=== PATIENT | female | born 1985 | race African-American/Black ===

== ENCOUNTER 2016-05-21 14:20 | Emergency (ER) | payer OTHER, SELFPAY ==
[~2016-05-21 14:20] MED LIST: Sodium Chloride 0.9% 1,000 ML BAG ONE; Sodium Chloride 0.9% 100 ML BAG ONE
[2016-05-21] MEDS ORDERED: HYDROcodone/Acetaminophen 10/325 mg Tablet ONE (15:54)
[2016-05-21] MEDS ORDERED: cefTRIAXone\\ROCEPHIN 1 GM VIAL ONE (15:55)
[2016-05-21] MEDS ORDERED: Ondansetron ODT 4 MG TAB ONE (15:55)
[2016-05-21] MEDS ORDERED: AMOXicillin 250 MG CAP ONE (15:55)
== END 2016-05-21 17:12 | disposition home or self-care (01) ==
LOC: MADERS 14:20
DX: J02.9 Acute pharyngitis, unspecified (principal); E86.0 Dehydration; K21.9 Gastro-esophageal reflux disease without esophagitis; J45.909 Unspecified asthma, uncomplicated
CPT/HCPCS: 96365; J0696; J7050; Q0162

== ENCOUNTER 2016-11-10 10:29 | Emergency (ER) | payer OTHER ==
[2016-11-10 11:44] LABS: Pregnancy Test - Urine (BHCG) POSITIVE (Negative); Pregu Control Background? CLEAR/WHITE (CLR/WHITE); Pregu Control Bar Appear? YES (CONTROL BAR); Specific Gravity 1.026 (1.002-1.036)
[2016-11-10 11:49] LABS: Bilirubin Negative (Negative); Blood, Urine Large (Negative); Clarity Clear (Clear); Glucose, Urine (Dipstick) Negative (Negative); Leukocyte Small (Negative); Nitrite Negative (Negative); Protein, Urine (Dipstick) Negative (Neg-Trace); Urobilinogen 0.2 mg/dL (0.2-1.0)
[2016-11-10 11:50] LABS: Specific Gravity, Urine 1.026 (1.002-1.036)
[2016-11-10 11:52] LABS: Bacteria/HPF 1+ HPF (None Seen)
[2016-11-10 11:55] LABS: #Eosinphils 0.1 thou/uL (0.0-0.7); #Lymphocytes 1.8 thou/uL (1.20-3.40); #Monocytes 0.3 thou/uL (0.11-0.59); #Neutrophils 3.3 thou/uL (1.40-6.50); %Basophils 0.9 % (0.0-1.0); %Eosinophils 1.9 % (0.0-10.0); %Lymphocytes 33.1 % (21.0-51.0); %Monocytes 5.3 % (0.0-10.0); %Neutrophils 58.9 % (42.0-75.0); Hemoglobin 12.6 g/dL (12.0-16.0); Mean Corpuscular HGB CONC 32.1 g/dL (32.0-36.0); Mean Corpuscular Hemoglobin 30.3 pg (27.0-31.0); Mean Corpuscular Volume 94.4 fl (81.0-99.0); Mean Platelet Volume 7.9 fL (7.4-10.4); Platelet Count 231 thou/uL (130-400); RBC Distribution Width 12.2 % (11.5-14.5); Red Blood Cell (RBC) Count 4.17 mill/uL (4.20-5.40); White Blood Cell (WBC) Count 5.6 thou/uL (4.8-10.8)
[2016-11-10 12:04] LABS: Prothrombin Time 13.7 SEC (12.0-14.7)
[2016-11-10 12:05] LABS: PTT 29.6 SEC (22.9-36.1)
[2016-11-10 12:15] LABS: ALT (SGPT) 33 U/L (8-55); AST (SGOT) 23 U/L (5-34); Albumin 4.1 g/dL (3.5-5.0); Alkaline Phosphatase 79 U/L (40-150); Anion Gap 13 mmol/L (10-20); BUN (Urea Nitrogen) 8 mg/dL (7.0-18.7); Bilirubin, Total Less than 0.3 mg/dL (0.2-1.2); Calc. Creatinine Clearance 0 mL/min (70-130); Calcium 9.3 mg/dL (7.8-10.44); Carbon Dioxide 23 mmol/L (22-29); Chloride 106 mmol/L (98-107); Estimated GFR-MDRD Greater than 90; Globulin 3.6 g/dL (2.4-3.5); Glucose 98 mg/dL (70-105); Potassium 3.8 mmol/L (3.5-5.1); Protein, Total 7.7 g/dL (6.0-8.3); Sodium 138 mmol/L (136-145)
--- NOTE | 2016-11-10 14:13 | ULT ---
PELVIC ULTRASOUND INCLUDING TRANSABDOMINAL AND TRANSVAGINAL AND VASCULAR DUPLEX WITH COLOR AND SPECT RAL DOPPLER IMAGING: Date: 11/10/16 HISTORY: 31-year-old female with pelvic pain. History of positive test, but passed a clot 8 days ag o and spotting since. The uterus measures 8.8 x 4.7 x 4.4 cm. There is a small, slightly oval fluid collection in the uter ine and fundus region with some material within this fluid. This could represent an abnormal nearly collapsed gestational sac and small pole. No evidence for viability. Right ovary is unremarkable measuring 1.4 x 1.6 x 2.7 cm. The left ovary is not visualized. No absce ss or abnormal fluid collection. IMPRESSION: Possible very small oval abnormal gestational sac within the uterus without evidence for definitive viability. Correlate with serum HCGs. Nonvisualized left ovary. No abnormal fluid collection. Follow-up serum HCG suggested. POS: [id number]
== END 2016-11-10 14:35 | disposition home or self-care (01) ==
LOC: MADERS 10:29
DX: O20.0 Threatened abortion (principal); J45.909 Unspecified asthma, uncomplicated; Z3A.01 Less than 8 weeks gestation of pregnancy
CPT/HCPCS: 36415; 76815; 80053; 81003; 81015; 81025; 84702; 85025; 85610; 85730

== ENCOUNTER 2016-11-12 11:05 | Outpatient (CLI) | payer OTHER | END 2016-11-12 11:06 | disposition home or self-care (01) | LOC: MADLABBHPM 11:05 | PROVIDERS: ATTEND Family Medicine | DX: O20.0 Threatened abortion (principal) | CPT/HCPCS: 36415; 84702 ==

== ENCOUNTER 2017-10-15 13:40 | Emergency (ER) | payer OTHER | END 2017-10-15 14:15 | disposition home or self-care (01) | LOC: MADERS 13:40 | DX: O47.03 False labor before 37 completed weeks of gestation, third trimester (principal); O99.513 Diseases of the respiratory system complicating pregnancy, third trimester; J45.909 Unspecified asthma, uncomplicated; O99.613 Diseases of the digestive system complicating pregnancy, third trimester; K21.9 Gastro-esophageal reflux disease without esophagitis; Z3A.36 36 weeks gestation of pregnancy | CPT/HCPCS: 99283 ==

== ENCOUNTER 2020-11-03 06:19 | Emergency (ER) | payer BC, OTHER ==
[2020-11-04 09:53] LABS: SARS-CoV-2 PCR by NAA Not Detected (NotDetected)
== END 2020-11-03 07:00 | disposition home or self-care (01) ==
LOC: MADERS 06:19
DX: R53.1 Weakness (principal); R05 Cough; R53.81 Other malaise; R10.9 Unspecified abdominal pain; R06.02 Shortness of breath; Z20.822 Contact with and (suspected) exposure to COVID-19; K21.9 Gastro-esophageal reflux disease without esophagitis; J45.909 Unspecified asthma, uncomplicated
CPT/HCPCS: 99284; U0003; U0005

== ENCOUNTER 2021-04-30 17:48 | Emergency (ER) | payer OTHER ==
[2021-04-30] MEDS ORDERED: Sodium Chloride 0.9% 1,000 ML ONE (18:27)
[2021-04-30] MEDS ORDERED: Acetaminophen 500 MG TAB ONE (18:47)
[2021-04-30 18:48] LABS: #Basophils 0.1 thou/uL (0.0-0.2); #Eosinphils 0.1 thou/uL (0.0-0.7); #Lymphocytes 1.1 thou/uL (1.20-3.40); #Monocytes 0.3 thou/uL (0.11-0.59); #Neutrophils 4.2 thou/uL (1.40-6.50); %Basophils 1.1 % (0.0-1.0); %Monocytes 5.9 % (0.0-10.0); %Neutrophils 72.9 % (42.0-75.0); Hemoglobin 11.4 g/dL (12.0-16.0); Mean Corpuscular HGB CONC 33.6 g/dL (32.0-36.0); Mean Corpuscular Hemoglobin 29.2 pg (27.0-31.0); Mean Corpuscular Volume 86.9 fL (78.0-98.0); Mean Platelet Volume 7.6 fL (7.4-10.4); Platelet Count 254 thou/uL (130-400); Red Blood Cell (RBC) Count 3.92 mill/uL (4.20-5.40); White Blood Cell (WBC) Count 5.8 thou/uL (4.8-10.8)
[2021-04-30 19:06] LABS: ALT (SGPT) 15 U/L (8-55); AST (SGOT) 18 U/L (5-34); Albumin 3.8 g/dL (3.5-5.0); Alkaline Phosphatase 81 U/L (40-110); Anion Gap 16 mmol/L (10-20); BUN (Urea Nitrogen) 6 mg/dL (7.0-18.7); Bilirubin, Total 0.4 mg/dL (0.2-1.2); Calc. Creatinine Clearance 0 mL/min (70-130); Carbon Dioxide 20 mmol/L (22-29); Chloride 106 mmol/L (98-107); Globulin 3.1 g/dL (2.4-3.5); Glucose 96 mg/dL (70-105); Potassium 3.7 mmol/L (3.5-5.1); Protein, Total 6.9 g/dL (6.0-8.3); Sodium 138 mmol/L (136-145)
[2021-04-30 19:38] LABS: Bilirubin Negative (Negative); Blood, Urine Small (Negative); Clarity Clear (Clear); Glucose, Urine (Dipstick) Negative (Negative); Ketone, Urine Negative (Negative); Leukocyte Negative (Negative); Nitrite Negative (Negative); Protein, Urine (Dipstick) Negative (Neg-Trace); Urobilinogen 0.2 mg/dL (Less than 2)
[2021-04-30 19:44] LABS: WBC/HPF None Seen HPF (0-3)
[2021-04-30 19:45] LABS: Amphetamine Not Detected (NotDetected); Barbiturates Screen Not Detected (NotDetected); Benzodiazepine Screen Not Detected (NotDetected); Cocaine Metabolite Screen Not Detected (NotDetected); Medtox Control Line Valid? VALID (VALID); Methadone Not Detected (NotDetected); Methamphetamine Not Detected (NotDetected); Opiate Screen Not Detected (NotDetected); Oxycodone Screen Not Detected (NotDetected); Phencyclidine (PCP) Not Detected (NotDetected); THC/Cannabinoid Screen Not Detected (NotDetected); Tricyclic Screen Not Detected (NotDetected)
== END 2021-04-30 20:18 | disposition home or self-care (01) ==
LOC: MADERS 17:48
DX: O99.891 Other specified diseases and conditions complicating pregnancy (principal); R07.9 Chest pain, unspecified; O99.283 Endocrine, nutritional and metabolic diseases complicating pregnancy, third trimester; E86.0 Dehydration; R00.0 Tachycardia, unspecified; O99.613 Diseases of the digestive system complicating pregnancy, third trimester; K21.9 Gastro-esophageal reflux disease without esophagitis; J45.909 Unspecified asthma, uncomplicated; Z79.899 Other long term (current) drug therapy; Z3A.30 30 weeks gestation of pregnancy
CPT/HCPCS: 80053; 80306; 81003; 81015; 84443; 84484; 85025; 93005; J7050

== ENCOUNTER 2021-07-10 10:45 | Emergency (ER) | payer BC, OTHER ==
[2021-07-10] MEDS ORDERED: Lorazepam 2 MG/ML VIAL ONE (11:00)
== END 2021-07-10 11:20 | disposition left against medical advice (07) ==
LOC: MADERS 10:45
DX: F43.0 Acute stress reaction (principal); K21.9 Gastro-esophageal reflux disease without esophagitis; J45.909 Unspecified asthma, uncomplicated; Z79.899 Other long term (current) drug therapy
CPT/HCPCS: 96372; 99283; J2060

== ENCOUNTER 2023-04-05 21:45 | Emergency (ER) | payer OTHER ==
[2023-04-05] MEDS ORDERED: methylPREDNISolone Sod Succ/PF 125 MG/2 ML VIAL ONE (22:38)
[2023-04-05] MEDS ORDERED: Ibuprofen 600 MG TAB ONE (22:38)
[2023-04-05] MEDS ORDERED: Ipratropium/Albuterol 3 ML NEB ONE (22:38)
[2023-04-05] MEDS ORDERED: Sodium Chloride 0.9% 1,000 ML ONE (22:38)
[2023-04-05] MEDS ORDERED: Benzonatate 100 MG CAP ONE (23:17)
[2023-04-05] MEDS ORDERED: Azithromycin 250 MG TAB ONE (23:54)
== END 2023-04-06 00:03 | disposition home or self-care (01) ==
LOC: MADERS 21:45
DX: J45.901 Unspecified asthma with (acute) exacerbation (principal); J20.9 Acute bronchitis, unspecified; Z79.899 Other long term (current) drug therapy
CPT/HCPCS: 87635; 87804; 94640; 96374; J2930; J7050; J7620

== ENCOUNTER 2023-05-19 08:27 | Emergency (ER) | payer OTHER ==
[2023-05-19 23:03] LABS: SARS-CoV-2 N1 Negative; SARS-CoV-2 N2 Negative; SARS-CoV-2 RNAse P1 Positive; SARS-CoV-2 RNAse P2 Positive
== END 2023-05-19 10:00 | disposition home or self-care (01) ==
LOC: MADERS 08:27
DX: J06.9 Acute upper respiratory infection, unspecified (principal); K59.00 Constipation, unspecified; I10 Essential (primary) hypertension
CPT/HCPCS: 87081; 87430; 87635; 87804; 99283

== ENCOUNTER 2023-12-16 16:20 | Emergency (ER) | payer OTHER ==
[2023-12-16 17:01] LABS: Bilirubin Negative (Negative); Blood, Urine Moderate (Negative); Glucose, Urine (Dipstick) Negative (Negative); Ketone, Urine 40 mg/dL (Negative); Leukocyte Negative (Negative); Nitrite Negative (Negative); Protein, Urine (Dipstick) 30 mg/dL (Neg-Trace)
[2023-12-16 17:08] LABS: Amphetamine Not Detected (NotDetected); Barbiturates Screen Not Detected (NotDetected); Benzodiazepine Screen Not Detected (NotDetected); Cocaine Metabolite Screen Not Detected (NotDetected); Methadone Not Detected (NotDetected); Methamphetamine Not Detected (NotDetected); Opiate Screen Not Detected (NotDetected); Oxycodone Screen Not Detected (NotDetected); Phencyclidine (PCP) Not Detected (NotDetected); THC/Cannabinoid Screen Not Detected (NotDetected); Tricyclic Screen Detected (NotDetected)
[2023-12-16 17:13] LABS: Clarity Clear (Clear); Specific Gravity, Urine 1.033 (1.002-1.036)
[2023-12-16 17:17] LABS: Bacteria/HPF Rare-Few HPF (None Seen); CAUTI Indications for Culture Pregnancy; Mucous/LPF 2+ LPF (<2+); WBC/HPF 0-3 HPF (0-3)
[2023-12-16 17:18] LABS: Urine Culture Reflex No No; Urine Culture Reflex Yes Yes
[2023-12-16 17:19] LABS: ALT (SGPT) 20 U/L (8-55); AST (SGOT) 23 U/L (5-34); Albumin 3.3 g/dL (3.5-5.0); Alkaline Phosphatase 58 U/L (40-110); Anion Gap 16 mmol/L (10-20); BUN (Urea Nitrogen) 7 mg/dL (7.0-18.7); Bilirubin, Total 0.5 mg/dL (0.2-1.2); Calc. Creatinine Clearance 0 mL/min (70-130); Calcium 9.1 mg/dL (7.8-10.44); Carbon Dioxide 19 mmol/L (22-29); Chloride 105 mmol/L (98-107); Estimated GFR 107; Globulin 3.8 g/dL (2.4-3.5); Glucose 120 mg/dL (70-105); Magnesium 1.6 mg/dL (1.6-2.6); Potassium 3.2 mmol/L (3.5-5.1); Protein, Total 7.1 g/dL (6.0-8.3); Sodium 137 mmol/L (136-145)
[2023-12-16 17:20] LABS: Troponin I Less than 0.010 ng/mL (< 0.028)
[2023-12-16 17:30] LABS: Band 1 % (5-11); Hematocrit 32.9 % (36.0-47.0); Hemoglobin 10.8 g/dL (12.0-16.0); MDiff Complete? YES; Mean Corpuscular HGB CONC 32.8 g/dL (32.0-36.0); Mean Corpuscular Hemoglobin 30.1 pg (27.0-31.0); Mean Platelet Volume 7.7 fL (7.4-10.4); Neutrophil 71 % (42-75); Platelet Count 208 10x3/uL (130-400); RBC Distribution Width 12.9 % (11.5-14.5); Red Blood Cell (RBC) Count 3.58 mill/uL (4.20-5.40); White Blood Cell (WBC) Count 9.1 10x3/uL (4.8-10.8)
[2023-12-16 17:31] LABS: Eosinophils 1 % (0-10); Lymphocytes 14 % (21-51); Manual Diff?? YES; Platelet Adequacy Comment Appears Adequate; Polychromasia SLIGHT = 2-3 cells (100X) (0-2/hpf); Reactive Lymphocytes 13 % (0-10)
== END 2023-12-16 19:27 | disposition home or self-care (01) ==
LOC: MADERS 16:20
DX: O99.891 Other specified diseases and conditions complicating pregnancy (principal); O99.332 Smoking (tobacco) complicating pregnancy, second trimester; O16.2 Unspecified maternal hypertension, second trimester; R00.0 Tachycardia, unspecified; Z3A.19 19 weeks gestation of pregnancy
CPT/HCPCS: 71045; 80053; 80306; 81001; 83735; 83880; 84484; 84702; 85025; 87086; 93005

== ENCOUNTER 2024-03-01 19:25 | Emergency (ER) | payer OTHER | END 2024-03-01 21:40 | disposition short-term general hospital (02) | LOC: MADERS 19:25 | DX: O99.891 Other specified diseases and conditions complicating pregnancy (principal); R10.30 Lower abdominal pain, unspecified; O11.3 Pre-existing hypertension with pre-eclampsia, third trimester; O10.913 Unspecified pre-existing hypertension complicating pregnancy, third trimester; O99.333 Smoking (tobacco) complicating pregnancy, third trimester; F17.290 Nicotine dependence, other tobacco product, uncomplicated; Z3A.30 30 weeks gestation of pregnancy ==

== ENCOUNTER 2024-04-15 19:53 | Emergency (ER) | payer SELFPAY ==
[2024-04-15] MEDS ORDERED: Sodium Chloride 0.9% 1,000 ML ONE (20:09)
[2024-04-15 20:19] LABS: #Basophils 0.1 thou/uL (0.0-0.2); #Eosinophils 0.1 thou/uL (0.0-0.7); #Lymphocytes 1.8 thou/uL (1.20-3.40); #Monocytes 0.4 thou/uL (0.11-0.59); #Neutrophils 2.9 thou/uL (1.40-6.50); %Eosinophils 2.3 % (0.0-10.0); %Lymphocytes 33.5 % (21.0-51.0); %Monocytes 8.2 % (0.0-10.0); %Neutrophils 55.1 % (42.0-75.0); Hematocrit 31.5 % (36.0-47.0); Hemoglobin 10.3 g/dL (12.0-16.0); Mean Corpuscular HGB CONC 32.7 g/dL (32.0-36.0); Mean Corpuscular Hemoglobin 28.9 pg (27.0-31.0); Mean Corpuscular Volume 88.2 fl (78.0-98.0); Mean Platelet Volume 10.5 fL (7.4-10.4); Platelet Count 197 10x3/uL (130-400); RBC Distribution Width 11.7 % (11.5-14.5); Red Blood Cell (RBC) Count 3.57 mill/uL (4.20-5.40); White Blood Cell (WBC) Count 5.3 10x3/uL (4.8-10.8)
[2024-04-15 20:32] LABS: ALT (SGPT) 8 U/L (Less than 34); AST (SGOT) 16 U/L (11-34); Albumin 3.1 g/dL (3.1-4.5); Alkaline Phosphatase 110 U/L (40-110); Anion Gap 14 mmol/L (10-20); BUN (Urea Nitrogen) 7 mg/dL (7.0-18.7); Bilirubin, Total 0.2 mg/dL (0.3-1.2); Calc. Creatinine Clearance 0 mL/min (70-130); Calcium 9.7 mg/dL (7.8-10.44); Carbon Dioxide 19 mmol/L (22-29); Chloride 108 mmol/L (98-107); Estimated GFR 116; Glucose 92 mg/dL (70-105); Protein, Total 7.1 g/dL (6.0-8.3); Sodium 137 mmol/L (136-145)
[2024-04-15] MEDS ORDERED: fentaNYL 50 mcg/mL 1 mL Vial ONE (21:27)
[2024-04-15] MEDS ORDERED: diphenhydrAMINE 50 MG/ML VIAL ONE (21:27)
== END 2024-04-15 22:03 | disposition short-term general hospital (02) ==
LOC: MADERS 19:53
DX: O62.4 Hypertonic, incoordinate, and prolonged uterine contractions (principal); O13.9 Gestational [pregnancy-induced] hypertension without significant proteinuria, unspecified trimester; O99.333 Smoking (tobacco) complicating pregnancy, third trimester; F17.290 Nicotine dependence, other tobacco product, uncomplicated; Z3A.37 37 weeks gestation of pregnancy
CPT/HCPCS: 80053; 85025; 96374; 96375; J1200; J3010; J7030

== ENCOUNTER 2024-10-02 14:47 | Emergency (ER) | payer SELFPAY ==
[2024-10-02] MEDS ORDERED: Orphenadrine Citrate 60 MG/2 ML VIAL ONE (15:08)
[2024-10-02 15:40] LABS: BHCG - Serum Negative (NEGATIVE); Pregs Control Background? CLEAR/WHITE (CLR/WHITE); Pregs Control Bar Appear? YES (CONTROL BAR)
[2024-10-02 15:42] LABS: ALT (SGPT) 36 U/L (Less than 34); AST (SGOT) 68 U/L (11-34); Albumin 4.6 g/dL (3.1-4.5); Alkaline Phosphatase 81 U/L (40-110); Anion Gap 21 mmol/L (10-20); BUN (Urea Nitrogen) 5 mg/dL (7.0-18.7); Bilirubin, Total 1.1 mg/dL (0.3-1.2); Calc. Creatinine Clearance 0 mL/min (70-130); Calcium 8.7 mg/dL (7.8-10.44); Carbon Dioxide 25 mmol/L (22-29); Chloride 98 mmol/L (98-107); Globulin 4.1 g/dL (2.4-3.5); Glucose 103 mg/dL (70-105); Magnesium 1.2 mg/dL (1.6-2.6); Potassium 2.8 mmol/L (3.5-5.1); Sodium 141 mmol/L (136-145)
[2024-10-02 15:43] LABS: Acetaminophen Less than 10 mcg/mL (Less than 10); CK (CPK) 182 U/L (29-168); Salicylate Less than 8.0 mg/dL (Less than 8.0)
[2024-10-02] MEDS ORDERED: Potassium Chloride 20 MEQ (100 mL) BAG ONE (15:55)
[2024-10-02] MEDS ORDERED: Magnesium 2 GM/50 ML BAG (IN WATER) ONE (15:55)
[2024-10-02 15:57] LABS: Bicarbonate (HCO3v) 29.8 mmol/L (22.0-28.0); CO2 Tension (PvCO2) 42.7 mmHg (42.0-51.0); Calcium, Ionized 1.02 mmol/L (1.15-1.33); Chloride 102 mmol/L (98-107); Hemoglobin - Calc 16.1 g/dL (12.0-16.0); Potassium 2.6 mmol/L (3.5-5.1); Sodium 138 mmol/L (138-145); T. Carbon Dioxide 31.2 mmol/L (22.0-28.0); vO2 Saturation-calc 93.7 % (60.0-85.0)
[2024-10-02 15:59] LABS: Hematocrit 44.0 % (36.0-47.0); Hemoglobin 14.1 g/dL (12.0-16.0); MDiff Complete? YES; Mean Corpuscular Hemoglobin 31.3 pg (27.0-31.0); Mean Corpuscular Volume 97.8 fl (78.0-98.0); Platelet Adequacy Comment Appears Adequate; Platelet Count 249 10x3/uL (130-400); Red Blood Cell (RBC) Count 4.50 mill/uL (4.20-5.40); White Blood Cell (WBC) Count 3.9 10x3/uL (4.8-10.8)
== END 2024-10-02 20:12 | disposition home or self-care (01) ==
LOC: MADERS 14:47
DX: R25.2 Cramp and spasm (principal); E87.6 Hypokalemia; E83.42 Hypomagnesemia; R29.700 NIHSS score 0; I10 Essential (primary) hypertension; F17.290 Nicotine dependence, other tobacco product, uncomplicated
CPT/HCPCS: 80053; 80307; 82330; 82435; 82550; 82803; 83735; 84132; 84295; 84703; 85014; 85025; 93005; 94760; 96365; 96366; 96368; 96375; J2360; J3475; J3480